=== PATIENT | male | born 1930 | race Caucasian/White ===

== ENCOUNTER 2017-05-28 09:37 | Inpatient (IN) ==
[2017-05-28] MEDS ORDERED: SODIUM CHLORIDE 0.9% 500 ML IV STA (10:13)
[2017-05-28] MEDS ORDERED: FLUMAZENIL 1 MG/10 ML VIAL IV PRN (10:13)
[2017-05-28] MEDS ORDERED: FLUMAZENIL 0.5 MG/5 ML VIAL IV ONE (11:03)
[2017-05-28 11:26] LABS: Basophils % 0.3 % (0.0-0.8); Eosinophils # 0.1 10*3/uL (0.0-0.87); Eosinophils % 1.2 % (0.00-10.9); Hematocrit 36.4 VOL% (42.0-52.0); Hemoglobin 12.3 GM/DL (14.0-18.0); Immature Granulocytes % 0.6 %; Immature Granulocytes Absolute 0.07 #; Lymphocytes # 0.8 10*3/uL (1.4-4.0); Lymphocytes % 6.9 % (21.2-54.2); Mean Corpuscular HGB Conc 33.8 GM/DL (32-36); Mean Corpuscular Hemoglobin 32 PG (27-34); Mean Corpuscular Volume 94.8 FL (87-102); Mean Platelet Volume 10.9 FL (9.6-12.0); Monocytes # 1.1 10*3/uL (0.11-0.8); Monocytes % 9.5 % (1.7-12.7); Neutrophils # 9.4 10*3/uL (1.4-7.4); Neutrophils % 81.5 % (38.7-73.9); Platelet Count 158 T/CUMM (130-400); Red Blood Count 3.84 MC/CUMM (3.8-5.5); Red Cell Distribution Width 12.7 % (9.3-17.3); White Blood Count 11.6 T/CUMM (4-12)
[2017-05-28 11:50] LABS: Bilirubin,Total 0.6 MG/DL (0.2-1.0); Calcium 8.1 MG/DL (8.5-10.1); Osmolality,Calculated 297.8 MOS/KG (273-304); Potassium 4.2 MMOL/L (3.5-5.1); Total Protein 6.3 G/DL (6.4-8.3)
[2017-05-28] MEDS ORDERED: DOCUSATE SODIUM 100 MG CAPSULE PO PRN (12:40)
[2017-05-28] MEDS ORDERED: BISACODYL 5 MG TABLET PO PRN (12:40)
[2017-05-28] MEDS ORDERED: ONDANSETRON 4 MG/2 ML VIAL IV PRN (12:40)
[2017-05-28 12:46] LABS: Apearance,Urine CLEAR (Clear); Bacteria,Urine Occasional /HPF (Few); Bilirubin,Urine Negative (Negative); Blood, Urine Moderate mg/dL (Negative); Glucose,Urine (UA) Negative (Negative); Hyaline Casts,Urine 1 /LPF (0-3); Ketones,Urine 20 mg/dL (Negative); Mucus,Urine Occasional /LPF (Occasional); Nitrite,Urine Negative (Negative); Protein,Urine Negative; RBC,Urine 2 /HPF (0-4); Squamous Epithelial Cell,Urine Occasional /HPF (0-10); Urine Color Yellow (Yellow); Urine Specific Gravity 1.015 (1.001-1.035); Urine Urobilinogen < 2.0 EU/DL (0.2-1.0); WBC,Urine <1 /HPF (0-6)
[2017-05-28] MEDS ORDERED: LEVOFLOXACIN INJ 750 MG in PREMIX 1 EACH IV ONE (13:00)
[2017-05-28] MEDS: SODIUM CHLORIDE 0.9% 1,000 ML IV SCH (14:05)
[2017-05-28 22:25] LABS: Barbiturates Screen,Urine Negative (Negative); Benzodiazepines Screen,Urine Positive (Negative); Cannabinoid Screen,Urine Negative (Negative); Opiate Screen,Urine Negative (Negative); Phencyclidine Screen,Urine Negative (Negative)
[2017-05-29 06:32] LABS: Basophils % 0.3 % (0.0-0.8); Eosinophils # 0.1 10*3/uL (0.0-0.87); Eosinophils % 0.6 % (0.00-10.9); Hematocrit 35.8 VOL% (42.0-52.0); Hemoglobin 12.3 GM/DL (14.0-18.0); Immature Granulocytes % 0.7 %; Immature Granulocytes Absolute 0.09 #; Lymphocytes # 1.5 10*3/uL (1.4-4.0); Lymphocytes % 11.6 % (21.2-54.2); Mean Corpuscular HGB Conc 34.4 GM/DL (32-36); Mean Corpuscular Hemoglobin 33 PG (27-34); Mean Corpuscular Volume 94.7 FL (87-102); Monocytes # 1.3 10*3/uL (0.11-0.8); Neutrophils # 9.7 10*3/uL (1.4-7.4); Neutrophils % 76.8 % (38.7-73.9); Platelet Count 153 T/CUMM (130-400); Red Blood Count 3.78 MC/CUMM (3.8-5.5); Red Cell Distribution Width 12.9 % (9.3-17.3); White Blood Count 12.7 T/CUMM (4-12)
[2017-05-29 07:00] LABS: Calcium 8.8 MG/DL (8.5-10.1); Osmolality,Calculated 307.1 MOS/KG (273-304); Potassium 4.7 MMOL/L (3.5-5.1)
[2017-05-29] MEDS: SODIUM CHLORIDE 0.9% 1,000 ML IV SCH (07:42)
[2017-05-29] MEDS: PANTOPRAZOLE 40 MG TABLET PO SCH (09:09)
[2017-05-29] MEDS ORDERED: MYLANTA/LIDO VISC/NYST 180 ML BOTTLE SWISH/SWAL PRN (10:19)
[2017-05-29] MEDS ORDERED: LORazepam 2 MG/1 ML VIAL IV PRN (12:20)
[2017-05-29] MEDS ORDERED: DEXTROSE 5% 1,000 ML IV SCH ×2 (12:30→19:30)
[2017-05-29 13:28] LABS: Allen Test Positive; Pt O2 Delivery Device Room Air
[2017-05-29 13:29] LABS: ABG Base Excess -7.6 MMOL/L (-2.5-2.5); ABG HCO3 18.3 MMOL/L (20-26); ABG Oxygen Saturation 93.8 % (95-100); ABG PCO2 25.1 MM HG (35-48); ABG PH 7.403 (7.35-7.45); ABG PO2 66.7 MM HG (80-95); ABG TCO2 13.7 MMOL/L (23-27)
[2017-05-29 16:39] LABS: Basophils % 0.2 % (0.0-0.8); Eosinophils % 0.2 % (0.00-10.9); Hematocrit 32.9 VOL% (42.0-52.0); Hemoglobin 11.2 GM/DL (14.0-18.0); Immature Granulocytes % 0.6 %; Immature Granulocytes Absolute 0.08 #; Lymphocytes # 1.3 10*3/uL (1.4-4.0); Lymphocytes % 10.6 % (21.2-54.2); Mean Corpuscular Hemoglobin 32 PG (27-34); Mean Corpuscular Volume 94.3 FL (87-102); Mean Platelet Volume 11.3 FL (9.6-12.0); Monocytes # 1.1 10*3/uL (0.11-0.8); Monocytes % 8.9 % (1.7-12.7); Neutrophils # 9.9 10*3/uL (1.4-7.4); Neutrophils % 79.5 % (38.7-73.9); Platelet Count 158 T/CUMM (130-400); Red Blood Count 3.49 MC/CUMM (3.8-5.5); Red Cell Distribution Width 12.9 % (9.3-17.3); White Blood Count 12.4 T/CUMM (4-12)
[2017-05-29 17:04] LABS: Calcium 8.2 MG/DL (8.5-10.1); Osmolality,Calculated 299.8 MOS/KG (273-304); Potassium 4.1 MMOL/L (3.5-5.1)
[2017-05-29 17:07] LABS: Albumin 2.7 G/DL (3.4-5.0); Bilirubin,Total 0.5 MG/DL (0.2-1.0); Calcium 8.3 MG/DL (8.5-10.1); Osmolality,Calculated 300.8 MOS/KG (273-304); Potassium 4.2 MMOL/L (3.5-5.1)
[2017-05-29] MEDS: cefTRIAXone 2,000 MG in SYRINGE 1 EACH IV SCH (17:45)
[2017-05-29] MEDS: AMPICILLIN INJ 2,000 MG in SODIUM CHLORIDE 0.9% 100 ML IV SCH (17:45)
[2017-05-29] MEDS ORDERED: VANCOMYCIN INJ 1,250 MG in SODIUM CHLORIDE 0.9% 250 ML IV ONE (20:00)
[2017-05-29] MEDS: ACYCLOVIR INJ 500 MG in SODIUM CHLORIDE 0.9% 100 ML IV SCH (21:46)
[2017-05-30] MEDS: AMPICILLIN INJ 2,000 MG in SODIUM CHLORIDE 0.9% 100 ML IV SCH ×3 (02:01→13:19)
[2017-05-30] MEDS: ACYCLOVIR INJ 500 MG in SODIUM CHLORIDE 0.9% 100 ML IV SCH ×3 (04:06→18:19)
[2017-05-30] MEDS: cefTRIAXone 2,000 MG in SYRINGE 1 EACH IV SCH (06:12)
[2017-05-30 07:04] LABS: Basophils % 0.3 % (0.0-0.8); Eosinophils # 0.2 10*3/uL (0.0-0.87); Eosinophils % 1.7 % (0.00-10.9); Hematocrit 32.6 VOL% (42.0-52.0); Hemoglobin 11.5 GM/DL (14.0-18.0); Immature Granulocytes % 0.6 %; Immature Granulocytes Absolute 0.06 #; Lymphocytes % 9.5 % (21.2-54.2); Mean Corpuscular HGB Conc 35.3 GM/DL (32-36); Mean Corpuscular Hemoglobin 32 PG (27-34); Mean Corpuscular Volume 91.6 FL (87-102); Mean Platelet Volume 11.3 FL (9.6-12.0); Monocytes % 9.5 % (1.7-12.7); Neutrophils # 8.1 10*3/uL (1.4-7.4); Neutrophils % 78.4 % (38.7-73.9); Platelet Count 153 T/CUMM (130-400); Red Blood Count 3.56 MC/CUMM (3.8-5.5); Red Cell Distribution Width 12.6 % (9.3-17.3); White Blood Count 10.4 T/CUMM (4-12)
[2017-05-30 07:17] LABS: INR 1.2; PT Patient Result 12.1 SECS; Partial Thromboplastin Time 35.6 SECS (0-40)
[2017-05-30 07:32] LABS: Albumin 2.3 G/DL (3.4-5.0); Bilirubin,Total 0.5 MG/DL (0.2-1.0); Potassium 3.7 MMOL/L (3.5-5.1); Total Protein 5.5 G/DL (6.4-8.3)
[2017-05-30] MEDS ORDERED: VANCOMYCIN INJ 1,250 MG in SODIUM CHLORIDE 0.9% 250 ML IV PRN (08:06)
[2017-05-30] MEDS: PANTOPRAZOLE 40 MG TABLET PO SCH (08:27)
[2017-05-30 11:20] LABS: Glucose,CSF 57 MG/DL (40-70)
[2017-05-30 11:33] LABS: Appearance,CSF Clear
[2017-05-30 11:34] LABS: Lymphocytes,CSF 80 %; Monocytes,CSF 20 %; Red Blood Cell,CSF < 1 C/CUMM; White Blood Cell,CSF 18 C/CUMM
[2017-05-30] MEDS ORDERED: LEVOFLOXACIN INJ 750 MG in PREMIX 1 EACH IV SCH (13:00)
[2017-05-30] MEDS: LEVOFLOXACIN INJ 500 MG in PREMIX 1 EACH IV SCH (14:42)
[2017-05-30] MEDS: SODIUM BICARB INJ 50 MEQ in DEXTROSE 5% 1,000 ML IV SCH (20:53)
[2017-05-31] MEDS: ACYCLOVIR INJ 500 MG in SODIUM CHLORIDE 0.9% 100 ML IV SCH ×3 (02:38→18:27)
[2017-05-31 06:51] LABS: Basophils % 0.3 % (0.0-0.8); Eosinophils # 0.3 10*3/uL (0.0-0.87); Eosinophils % 3.8 % (0.00-10.9); Hematocrit 31.2 VOL% (42.0-52.0); Hemoglobin 10.8 GM/DL (14.0-18.0); Immature Granulocytes % 0.7 %; Immature Granulocytes Absolute 0.06 #; Lymphocytes # 1.1 10*3/uL (1.4-4.0); Lymphocytes % 11.9 % (21.2-54.2); Mean Corpuscular HGB Conc 34.6 GM/DL (32-36); Mean Corpuscular Hemoglobin 32 PG (27-34); Mean Corpuscular Volume 92.3 FL (87-102); Mean Platelet Volume 11.3 FL (9.6-12.0); Monocytes # 0.8 10*3/uL (0.11-0.8); Monocytes % 9.4 % (1.7-12.7); Neutrophils # 6.6 10*3/uL (1.4-7.4); Neutrophils % 73.9 % (38.7-73.9); Platelet Count 170 T/CUMM (130-400); Red Blood Count 3.38 MC/CUMM (3.8-5.5); Red Cell Distribution Width 12.4 % (9.3-17.3); White Blood Count 8.9 T/CUMM (4-12)
[2017-05-31 07:19] LABS: Osmolality,Calculated 292.1 MOS/KG (273-304); Potassium 3.7 MMOL/L (3.5-5.1)
[2017-05-31] MEDS: SODIUM BICARB INJ 50 MEQ in DEXTROSE 5% 1,000 ML IV SCH (10:46)
[2017-05-31] MEDS: PANTOPRAZOLE 40 MG VIAL IV SCH (10:47)
[2017-05-31] MEDS: LEVOFLOXACIN INJ 500 MG in PREMIX 1 EACH IV SCH (13:50)
[2017-06-01] MEDS: ACYCLOVIR INJ 500 MG in SODIUM CHLORIDE 0.9% 100 ML IV SCH ×2 (02:23→18:18)
[2017-06-01 07:21] LABS: Calcium 7.5 MG/DL (8.5-10.1); Osmolality,Calculated 291.4 MOS/KG (273-304); Potassium 3.7 MMOL/L (3.5-5.1); Prealbumin 8.6 MG/DL (20-40)
[2017-06-01] MEDS: PANTOPRAZOLE 40 MG VIAL IV SCH ×2 (07:54→07:59)
[2017-06-01] MEDS: SODIUM BICARB INJ 50 MEQ in DEXTROSE 5% 1,000 ML IV SCH (07:58)
[2017-06-01] MEDS: LEVOFLOXACIN INJ 500 MG in PREMIX 1 EACH IV SCH (13:33)
[2017-06-01 16:23] LABS: VDRL Spinal Fluid Negative (Negative)
[2017-06-02] MEDS: SODIUM BICARB INJ 50 MEQ in DEXTROSE 5% 1,000 ML IV SCH (01:32)
[2017-06-02 06:05] LABS: Calcium 7.9 MG/DL (8.5-10.1); Osmolality,Calculated 289.5 MOS/KG (273-304); Potassium 3.8 MMOL/L (3.5-5.1)
[2017-06-02] MEDS: ACYCLOVIR INJ 500 MG in SODIUM CHLORIDE 0.9% 100 ML IV SCH (06:37)
[2017-06-02] MEDS: PANTOPRAZOLE 40 MG VIAL IV SCH ×2 (07:21→08:06)
[2017-06-02 15:11] LABS: M. Tuberculosis PCR Result Negative (Negative); M. Tuberculosis PCR Source CSF
[2017-06-02] MEDS ORDERED: risperiDONE 0.5 MG TABLET PO SCH (21:00)
[2017-06-03] MEDS: SODIUM BICARB INJ 50 MEQ in DEXTROSE 5% 1,000 ML IV SCH (06:07)
[2017-06-03] MEDS: ACETAMINOPHEN 325 MG TABLET PO PRN (09:32)
[2017-06-03] MEDS: PANTOPRAZOLE 40 MG TABLET PO SCH (09:33)
[2017-06-03] MEDS: risperiDONE 0.5 MG TABLET PO SCH (22:25)
[2017-06-04 06:24] LABS: Calcium 8.3 MG/DL (8.5-10.1); Osmolality,Calculated 294.3 MOS/KG (273-304); Potassium 3.8 MMOL/L (3.5-5.1); Prealbumin 10.7 MG/DL (20-40)
[2017-06-04] MEDS: PANTOPRAZOLE 40 MG TABLET PO SCH (10:40)
[2017-06-04] MEDS: TAMSULOSIN 0.4 MG CAPSULE PO SCH (20:33)
[2017-06-04] MEDS: amLODIPine 10 MG TABLET PO SCH (20:33)
[2017-06-04] MEDS: risperiDONE 0.5 MG TABLET PO SCH (20:33)
[2017-06-04] MEDS: NYSTATIN POWDER 15 GM BOTTLE TOP SCH (21:01)
[2017-06-05 07:08] LABS: Calcium 8.5 MG/DL (8.5-10.1); Osmolality,Calculated 293.4 MOS/KG (273-304); Potassium 4.3 MMOL/L (3.5-5.1)
[2017-06-05] MEDS: ACETAMINOPHEN 325 MG TABLET PO PRN (10:01)
[2017-06-05] MEDS: PANTOPRAZOLE 40 MG TABLET PO SCH (10:01)
[2017-06-05] MEDS: FINASTERIDE 5 MG TABLET PO SCH (10:01)
[2017-06-05] MEDS: amLODIPine 10 MG TABLET PO SCH ×2 (10:01→20:31)
[2017-06-05] MEDS: NYSTATIN POWDER 15 GM BOTTLE TOP SCH ×2 (10:03→21:05)
[2017-06-05] MEDS: risperiDONE 0.5 MG TABLET PO SCH (20:31)
[2017-06-05] MEDS: TAMSULOSIN 0.4 MG CAPSULE PO SCH (20:31)
[2017-06-06] MEDS: PANTOPRAZOLE 40 MG TABLET PO SCH (09:49)
[2017-06-06] MEDS: amLODIPine 10 MG TABLET PO SCH (09:49)
[2017-06-06] MEDS: FINASTERIDE 5 MG TABLET PO SCH (09:49)
[2017-06-06] MEDS: NYSTATIN POWDER 15 GM BOTTLE TOP SCH (09:49)
[2017-06-06 13:01] VITALS: BP 137/59
== END 2017-06-06 15:34 | disposition hospice, home (50) | DRG 194 ==
LOC: EDUNIT# → EDBD → N.ED 09:37 → N.EDINP 11:51 → SUATTDRO 11:51 → N.EDINP 13:29 → N.5E 13:36
PROVIDERS: ADMIT Internal Medicine; ATTEND Internal Medicine